=== PATIENT | female | born 1975 | race Two or more races ===

== ENCOUNTER 2017-02-25 05:46 | Day surgery (SDC) | payer BC ==
[2017-02-25] MEDS ORDERED: SILVER NITRATE APPLICATOR 1 EA BOX ONE ×4 (08:14)
== END 2017-02-25 09:50 | disposition home or self-care (01) ==
LOC: DS 05:46
PROVIDERS: ATTEND Obstetrics & Gynecology
DX: N84.1 Polyp of cervix uteri (principal)
CPT/HCPCS: 36415; 84703-TC; 86850-TC; 88305-TC; A4217; J0690; J1100; J2001; J2405; J2704

== ENCOUNTER 2017-10-18 05:52 | Inpatient (IN) | payer BC ==
[~2017-10-18] VITALS: Ht 154.9 cm; Wt 74.8 kg
[2017-10-18] MEDS ORDERED: ANESTHESIA TRAY IN PYXIS 1 EA TRAY MC ONE (06:42)
[2017-10-18 06:58] LABS: APPEARANCE,URINE CLEAR (CLEAR); BILIRUBIN,URINE NEGATIVE (NEGATIVE); BLOOD, URINE NEGATIVE Ery/uL (NEGATIVE); COLOR,URINE YELLOW (YELLOW); KETONES,URINE NEGATIVE (NEGATIVE); LEUKOCYTE ESTERASE ,URINE NEGATIVE (NEGATIVE); NITRITE, URINE NEGATIVE (NEGATIVE); PROTEIN,URINE NEGATIVE (NEGATIVE); UGLUCOSE NEGATIVE (NEGATIVE); UROBILINOGEN,URINE 0.2 EU/dL (0.2)
[2017-10-18 07:06] LABS: CALCIUM, SERUM 8.9 mg/dL (8.5-10.1); CREATININE 0.7 mg/dL (0.6-1.3); POTASSIUM 3.5 mmol/L (3.5-5.1)
[2017-10-18 07:07] LABS: BASOPHILS % (AUTO) 0.5 % (0.0-2.0); EOSINOPHILS % (AUTO) 0.9 % (0.0-6.0); HEMATOCRIT 42 % (33-45); HEMOGLOBIN 14.6 g/dL (11.5-14.8); LYMPHOCYTES # (AUTO) 2.5 /CMM (0.8-4.8); LYMPHOCYTES % (AUTO) 33.6 % (20.0-44.0); MEAN CORPUSCULAR HGB CONC 35 g/dl (31.0-36.0); MEAN CORPUSCULAR VOLUME 94 fL (82-100); MONOCYTES # (AUTO) 0.5 /CMM (0.1-1.30); NEUTROPHILS # (AUTO) 4.4 /CMM (1.8-8.9); PLATELET COUNT (AUTO) 291 /CMM (150-450); RDW COEFFICIENT OF VARIATION 12.7 (11.5-15.0); RED BLOOD CELL COUNT(AUTO) 4.51 MIL/uL (4.0-5.2); WHITE BLOOD COUNT (AUTO) 7.5 K/uL (4.3-11.0)
[2017-10-18 07:13] LABS: ALBUMIN 3.9 g/dL (3.4-5.0); BILIRUBIN,TOTAL 0.3 mg/dL (0.2-1.0); TOTAL PROTEIN, SERUM 7.5 g/dL (6.4-8.2)
[2017-10-18] MEDS ORDERED: MIDAZOLAM HCL 2 MG/2ML VIAL ONE (07:28)
[2017-10-18] MEDS ORDERED: FENTANYL PF 100MCG/2ML AMPUL ONE ×2 (07:28)
[2017-10-18] MEDS ORDERED: ROCURONIUM BROMIDE 50 MG/5 ML ONE ×2 (07:28→08:21)
[2017-10-18 07:43] LABS: INR 0.91 (0.87-1.13)
[2017-10-18] MEDS ORDERED: CELLULOSE,OXIDIZED 1 EA PACK MC ONE (08:44)
[2017-10-18] MEDS ORDERED: BUPIVACAINE 0.25% 75 MG/30 ML VIAL ONE (08:57)
[2017-10-18] MEDS ORDERED: HYDROMORPHONE INJ 2 MG/ML DISP.SYRIN ONE (09:40)
[2017-10-18] MEDS ORDERED: IV D5 LR 1,000 ML IV PRN (10:30)
[2017-10-18] MEDS ORDERED: MORPHINE SULFATE INJ 4 MG/ML DISP.SYRIN IV PRN ×2 (10:30)
[2017-10-18] MEDS ORDERED: HYDROCODONE/APAP 5/325MG 1 EACH TABLET PO PRN (10:30)
[2017-10-18] MEDS ORDERED: ONDANSETRON HCL/PF 4 MG/2 ML VIAL IV PRN (10:30)
[2017-10-18] MEDS ORDERED: PRAV20TA4 PO (10:59)
[2017-10-18] MEDS ORDERED: LEVO25TA9 PO (10:59)
[2017-10-18 11:00] VITALS: BP 124/72
--- NOTE | 2017-10-18 11:00 | NUR ---
RN POST OP ADMISSION PT. WAS BROUGHT FROM RECOVERY IN STABLE CONDITION, POST OP TOTAL ABDOMINAL HYSTERECTOMY. PT. IS A&OX4. POST OP ORDERS WERE FAXED TO PHARMACY. PT. IS BREATHING UNLABORED ON OXYGEN AT 2L/MIN VIA NASAL CANNULA. ROGERS CATHETER HAS 5CC OF CLEAR, AND YELLOW URINE OUTPUT. IV ACCESS ON RIGHT ANTECUBITAL SITE GAUGE 18 HAD IV LR FLUIDS RUNNING. PT.'S IS AT BEDSIDE. BED IS IN LOWEST, AND LOCKED POSITION. 2 SIDE RAILS UP, AND INSTRUCTED PT. TO USE CALL LIGHT FOR ASSISTANCE. ALL NEEDS MET. WILL CONTINUE TO ASSESS AND MONITOR.
[2017-10-18 11:15] VITALS: BP 122/72
[2017-10-18 11:30] VITALS: BP 118/73
[2017-10-18 12:00] VITALS: BP 118/68
[2017-10-18] MEDS: KETOROLAC TROMETHAMINE INJ 30 MG/ML VIAL IV SCH ×2 (12:05→23:24)
[2017-10-18 16:00] VITALS: BP 119/64
[2017-10-18] MEDS: ANCEF 1 GM/50 ML D5W IV SCH ×4 (16:08→23:24)
[2017-10-18] MEDS: DOCUSATE SODIUM 100 MG CAPSULE PO SCH (17:18)
--- NOTE | 2017-10-18 18:53 | NUR ---
RN CLOSING NOTES PT. IS IN BED, A&OX4, WATCHING TV. BREATHING UNLABORED, AND EVENLY ON ROOM AIR. NO S/S OF ACUTE DISTRESS. IV FLUIDS RUNNING AT 100 ML/HR. PT. TOLERATED CLEAR LIQUIDS FOR DINNER WELL, NO C/O NAUSEA AND NO VOMITING. BED IS IN LOWEST, AND LOCKED POSITION. 2 SIDE RAILS UP, AND INSTRUCTED PT. TO USE CALL LIGHT FOR ASSISTANCE. ALL NEEDS MET. WILL ENDORSE REPORT TO NURSE.
[2017-10-18 20:00] VITALS: BP 134/72
--- NOTE | 2017-10-19 06:00 | NUR ---
s/p abdominal Hysterectomy with transverse dressing,clean,dry and intact. bedrest overnight, will dcd yepez and iv fluids. will be discharged home today , at bedside.slept well after pain meds given, vss,afebrile. will continue to monitor.call light at reached.
[2017-10-19 06:25] LABS: INR 0.96 (0.87-1.13)
[2017-10-19 06:35] LABS: BASOPHILS % (AUTO) 0.2 % (0.0-2.0); HEMATOCRIT 35 % (33-45); HEMOGLOBIN 12.1 g/dL (11.5-14.8); LYMPHOCYTES # (AUTO) 2.3 /CMM (0.8-4.8); LYMPHOCYTES % (AUTO) 18.4 % (20.0-44.0); MEAN CORPUSCULAR HGB CONC 34 g/dl (31.0-36.0); MEAN CORPUSCULAR VOLUME 95 fL (82-100); MONOCYTES # (AUTO) 1.4 /CMM (0.1-1.30); MONOCYTES % (AUTO) 11.4 % (2.0-12.0); NEUTROPHILS # (AUTO) 8.7 /CMM (1.8-8.9); PLATELET COUNT (AUTO) 250 /CMM (150-450); RDW COEFFICIENT OF VARIATION 12.7 (11.5-15.0); RED BLOOD CELL COUNT(AUTO) 3.69 MIL/uL (4.0-5.2); WHITE BLOOD COUNT (AUTO) 12.4 K/uL (4.3-11.0)
[2017-10-19 07:03] LABS: CREATININE 0.7 mg/dL (0.6-1.3); POTASSIUM 3.7 mmol/L (3.5-5.1)
--- NOTE | 2017-10-19 07:45 | NUR ---
RN OPENING NOTES PT. IS IN BED, A&OX4. BREATHING UNLABORED, AND EVENLY ON ROOM AIR. NO S/S OF ACUTE DISTRESS. IV ACCESS IS ON THE RIGHT ANTECUBITAL SITE INTACT. PT. HAS BEEN TOLERATING CLEAR LIQUIDS WITHOUT NAUSEA AND VOMITING. ROGERS CATHETER WAS REMOVED PER NURSE. ENCOURAGED PT. TO USE INCENTIVE SPIROMETER PER MD ORDERS. BED IS IN LOWEST, AND LOCKED POSITION. 2 SIDE RAILS UP, AND INSTRUCTED PT. TO USE CALL LIGHT FOR ASSISTANCE. ALL NEEDS MET. WILL CONTINUE TO ASSESS AND MONITOR.
[2017-10-19 08:00] VITALS: BP 130/66
[2017-10-19] MEDS: DOCUSATE SODIUM 100 MG CAPSULE PO SCH (08:14)
--- NOTE | 2017-10-19 09:31 | NUR ---
PT. VOIDED 300 CC OF CLEAR, AND YELLOW URINE OUTPUT INTO BEDPAN. PT. DENIED BURNING, AND PAIN ON URINATION.
--- NOTE | 2017-10-19 10:32 | NUR ---
RN NOTES DISCUSSED WITH DR. PERES VIA PHONE PT.'S CONDITION. NEW ORDER WAS GIVEN TO GET OUT OF BED, AND ADVANCE DIET TOLERATED. PROVIDED MD PT.'S H/H VIA PHONE, AND NO NEW ORDERS GIVEN.
[2017-10-19] MEDS: KETOROLAC TROMETHAMINE INJ 30 MG/ML VIAL IV SCH (12:18)
--- NOTE | 2017-10-19 15:18 | NUR ---
RN NOTES DISCHARGE ORDER FROM MD PER MD ORDERS, PT. WILL BE DISCHARGED TODAY AT 1300. FOLLOW UP IN DOCTOR'S OFFICE NEXT TUESDAY 11 AM. PRESCRIPTION GIVEN TO PATIENT. DISCONTINUE IV.
--- NOTE | 2017-10-19 15:20 | NUR ---
DR. PERES ORDERED FOR PT. FROM [facility] TO BRING WITH HER TO THE OFFICE A STAPLE REMOVER, STERI STRIPS 1/2 INCH, AND MASTOCELL CLEANSING SOLUTION FOR SURGICAL SITE. PT. RECEIVED SUPPLIED TO TAKE TO DOCTOR'S OFFICE A STAPLE REMOVER, STERI STRIPS, AND MASTOCELL SOLUTION.
--- NOTE | 2017-10-19 16:45 | NUR ---
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 PT. 'S VITAL SIGNS WERE WNL. PT. LEFT WITH BY CAR. DISCHARGE INSTRUCTIONS WITH EDUCATION WERE GIVEN. BELONGINGS LIST WAS CHECKED, AND SIGNED. PT. WAS GIVEN PRESCRIPTION WITH EDUCATION AND VERBALIZED UNDERSTANDING. EDUCATION, AND INSTRUCTION WAS GIVEN ON WOUND CARE, AND THE S/S OF INFECTION, IF PT. IS HAVING A FEVER TO CALL DOCTOR AND GO TO EMERGENCY ROOM. PT. LEFT WITH ABDOMINAL BINDER ON, RON INTACT. WHEELCHAIR WAS PROVIDED ON DISCHARGE. ALL QUESTIONS ANSWERED. ID BAND, AND IV WAS REMOVED WITHOUT COMPLICATIONS. PT. LEFT WITH DISCHARGE PACKET.
== END 2017-10-19 16:20 | disposition home or self-care (01) | DRG 743 ==
LOC: DS 05:52 → MED 11:05
PROVIDERS: ADMIT Obstetrics & Gynecology; ATTEND Obstetrics & Gynecology
PROC: 0UT90ZL Resection of Uterus, Supracervical, Open Approach (ICD-10-PCS; principal; 2017-10-18 08:08)
DX: D25.9 Leiomyoma of uterus, unspecified (principal); D50.0 Iron deficiency anemia secondary to blood loss (chronic); N80.0 Endometriosis of uterus; N95.0 Postmenopausal bleeding; N32.89 Other specified disorders of bladder
CPT/HCPCS: 36415; 80048-TC; 80053-TC; 81000-TC; 82962-TC; 84703-TC; 85025-TC; 85610-TC; 85730-TC; 86850-TC; 86921-TC; 87081-TC; 88305-TC; 88307-TC; A6209; A6402; J0690; J1100; J1170; J1885; J2250; J2405; J2710; J3010; J3490; J7030; J7060; Z7610